=== PATIENT | male | born 1990 | race Two or more races ===

== ENCOUNTER 2019-04-11 14:15 | Emergency (ER) | payer MEDICAID ==
[~2019-04-11] VITALS: Ht 170.2 cm; Wt 90.7 kg
--- NOTE | 2019-04-11 15:02 | NUR ---
Seen nd examined by Dr Adrian.
--- NOTE | 2019-04-11 15:09 | NUR ---
Patient discharged to home in stable conditon. Written and verbal after care instructions given. Patient verbalizes understanding of instructions.
[2019-04-11 15:13] VITALS: BP 133/81
== END 2019-04-11 15:13 | disposition home or self-care (01) ==
LOC: ER 14:15
DX: S80.811A Abrasion, right lower leg, initial encounter (principal); L08.9 Local infection of the skin and subcutaneous tissue, unspecified; X58.XXXA Exposure to other specified factors, initial encounter; Y93.89 Activity, other specified; Y92.89 Other specified places as the place of occurrence of the external cause; Y99.8 Other external cause status
CPT/HCPCS: A4663

== ENCOUNTER 2020-08-01 08:54 | Emergency (ER) | payer MEDICAID ==
[~2020-08-01] VITALS: Ht 172.7 cm; Wt 94.3 kg
--- NOTE | 2020-08-01 08:56 | NUR ---
at bedside for assessment
--- NOTE | 2020-08-01 09:01 | NUR ---
Patient discharged to home in stable condition. Patient noted ambulating with stable gait, took all belongings, all needs met. Written and verbal after care instructions given. Patient verbalizes understanding of instructions. Stressed follow up or return to ER for worsening s/s.
== END 2020-08-01 09:00 | disposition home or self-care (01) ==
LOC: ER 08:54
DX: L72.3 Sebaceous cyst (principal)
CPT/HCPCS: A4663